=== PATIENT | female | born 1965 | race Two or more races ===

== ENCOUNTER 2025-09-11 15:29 | Emergency (ER) | payer OTHER ==
[~2025-09-11] VITALS: Ht 162.6 cm; Wt 75.0 kg
[2025-09-11 15:44] VITALS: TEMP 36.8; O2SAT 100
[2025-09-11] MEDS: IBUPROFEN 600MG TABLET PO ONE (18:52)
[2025-09-11 19:03] VITALS: BP 150/88; PULSE 67; RESP 16; O2SAT 100
== END 2025-09-11 19:05 | disposition home or self-care (01) ==
LOC: ER 15:49
DX: S40.012A Contusion of left shoulder, initial encounter (principal); E03.9 Hypothyroidism, unspecified; V89.2XXA Person injured in unspecified motor-vehicle accident, traffic, initial encounter; Y93.89 Activity, other specified; Y92.89 Other specified places as the place of occurrence of the external cause; Y99.8 Other external cause status
CPT/HCPCS: 73030; 99283